=== PATIENT | male | born 1985 | race Caucasian/White ===

== ENCOUNTER 2023-04-22 21:07 | Emergency (ER) | payer BC ==
[~2023-04-22] VITALS: Ht 182.9 cm; Wt 175.9 kg
--- NOTE | 2023-04-22 21:33 | NUR ---
dr Clayton notified of patients symptoms @ [id number]
[2023-04-22] MEDS ORDERED: cephalexin 250mg capsule PO ONE (22:40)
[2023-04-22] MEDS ORDERED: HYDROcodone/acetaminophen 10/325mg tab PO ONE (22:40)
[2023-04-22] MEDS ORDERED: LIDOcaine 1% W/epiNEPHrine 1:100,000 20ml vial SQ ONE (22:40)
[2023-04-22 23:18] LABS: MONOCYTES # (AUTO) 0.5 X10'3 (0-0.9)
[2023-04-22 23:19] LABS: BASOPHILS % (AUTO) 0.6 % (0-1); EOSINOPHILS # (AUTO) 0.1 X10'3 (0-0.9); EOSINOPHILS % (AUTO) 0.7 % (0-6); HEMATOCRIT 46.8 % (42.0-52.0); HEMOGLOBIN 16.1 g/dl (14.0-17.9); LYMPHOCYTES # (AUTO) 2.5 X10'3 (1.1-4.8); LYMPHOCYTES % (AUTO) 31.9 % (21-51); MEAN CORPUSCULAR HEMOGLOBIN 33.3 PG (27.0-31.0); MEAN CORPUSCULAR HGB CONC 34.3 g/dL (33.0-36.5); MEAN CORPUSCULAR VOLUME 97.1 FL (78-98); MONOCYTES % (AUTO) 6.9 % (2-12); NEUTROPHILS # (AUTO) 4.7 X10'3 (1.8-7.7); NEUTROPHILS % (AUTO) 59.9 % (42-75); PLATELET COUNT 280 X10'3 (140-440); RED BLOOD COUNT 4.82 X10'6 (4.70-6.10); RED CELL DISTRIBUTION WIDTH 13.3 % (11.5-14.5); WHITE BLOOD COUNT 7.9 X10'3 (4.5-11.0)
[2023-04-22] MEDS ORDERED: LIDOCAINE 1%/EPI 1:100,000 inj. 10 ML multi-dose vial SQ ONE (23:20)
[2023-04-22 23:22] LABS: ALANINE AMINOTRANSFERASE 82 U/L (12-78); ALBUMIN 3.8 G/DL (3.4-5.0); ALBUMIN/GLOBULIN RATIO 1.1 (1.1-1.5); ALKALINE PHOSPHATASE 97 IU/L (46-116); ANION GAP 14 (8-16); ASPARTATE AMINO TRANSFERASE 39 U/L (10-37); BILIRUBIN,TOTAL 0.2 MG/DL (0.1-1.0); BLOOD UREA NITROGEN 16 MG/DL (7-18); BUN/CREATININE RATIO 16.5 (10.0-20.0); CALCIUM 9.5 MG/DL (8.5-10.1); CHLORIDE 105 MMOL/L (99-107); CREATININE 0.97 MG/DL (0.60-1.10); GLUCOSE 125 MG/DL (70-104); SODIUM 141 MMOL/L (135-145); TOTAL CARBON DIOXIDE 21.7 MMOL/L (24-32); TOTAL PROTEIN 7.2 G/DL (6.4-8.2); eGFR 87 ML/MIN
[2023-04-22 23:24] LABS: ETHANOL 0.198 GM/DL (0.0-0.010)
--- NOTE | 2023-04-22 23:56 | NUR ---
Per Dr. Toscano ok to remove C-colar as imaging was negative.
[2023-04-23] MEDS ORDERED: bacitracin 15gm ointment TP ONE (00:15)
[2023-04-23] MEDS ORDERED: HYDR-3973 PO (00:18)
[2023-04-23] MEDS ORDERED: CEPH-585 PO (00:18)
[2023-04-23 00:30] VITALS: BP 95/46; PULSE 82; RESP 18; TEMP 97.6; O2SAT 92
== END 2023-04-23 00:34 | disposition home or self-care (01) ==
LOC: ER 21:08
DX: S01.81XA Laceration without foreign body of other part of head, initial encounter (principal); Y04.8XXA Assault by other bodily force, initial encounter; Y93.89 Activity, other specified; Y92.89 Other specified places as the place of occurrence of the external cause; Y99.8 Other external cause status
CPT/HCPCS: 12011; 36415; 70450; 70486; 71045; 72125; 80053; 80320; 84484; 85025; 99284